=== PATIENT | male | born 1995 | race Caucasian/White ===

== ENCOUNTER 2019-03-23 17:07 | Emergency (ER) | payer OTHER ==
--- NOTE | 2019-03-23 17:31 | ED ---
Laceration/Wound HPI - HPI Summary HPI Summary: This patient gael 23 year old male presenting to [facility] with a chief complaint of left thumb webbing and index finger lacerations. He states he was holding a april jar and accidently tapped it on the counter causing it to shatter. He does not know if there is still glass in the wound. Medications reviewed, allergies noted. - History of Current Complaint Stated Complaint: LT HAND LAC PER PT Time Seen by Provider: 03/23/19 17:18 Hx Obtained From: Patient Onset/Duration: Lasting Minutes Pain Intensity: 2 Pain Scale Used: 0-10 Numeric - Allergy/Home Medications Allergies/Adverse Reactions: Allergies Allergy/AdvReac Type Severity Reaction Status Date / Time cefixime Allergy Hives Verified 03/23/19 17:14 PMH/Surg Hx/FS Hx/Imm Hx Endocrine/Hematology History: Denies: Hx Diabetes Cardiovascular History: Denies: Hx Coronary Artery Disease Infectious Disease History: No Infectious Disease History: Denies: Traveled Outside the [place] in Last 30 Days - Family History Known Family History: Negative: Cardiac Disease - Social History Occupation: Student Lives: Dormitory/Roommates Review of Systems Negative: Fever Positive: Other - Lacerations All Other Systems Reviewed And Are Negative: Yes Physical Exam - Summary Physical Exam Summary: Constitutional: Well-developed, Well-nourished, Alert, Cooperative Skin: Warm, Dry. 2 cm laceration on the webbing of the left thumb. Full ROM in the left thumb. 0.5 cm laceration at the hernandez aspect of the 2nd finger. HENT: Normocephalic; No Racoons eyes; No gallegos's sign; No abrasion; No contusion; No hemotympanum; No maxilla facial tenderness or instability; Dentition are smooth; No dental trauma; No trismus Eyes: EOM normal, PERRL Neck: Trachea is midline. No stridor; No JVD; No step off; No posterior cervical spine tenderness Cardio: Rhythm regular, rate normal Heart sounds normal; Intact distal pulses. Radial pulses are 2+ and symmetric. Pulmonary/Chest wall: Effort normal; Breath sounds normal; Equal chest rise; No flail segment; No rib tenderness; No sternal tenderness Abd: Soft, Appearance normal. No distension; No tenderness; No palpable pulsatile mass; No Cullens sign; No Kenny-Turners sign Musculoskeletal: Full ROM and no tenderness at hips, ankles, shoulders, elbows and knees; No joint swelling; No vertebral body tenderness; No paraspinal tenderness; No step off or deformity of the spine; Pelvis is stable to lateral compression and rock Neuro: Alert, Oriented x3, Strength 5/5 all extremities. : No blood at urethral meatus Psych: Mood and affect Normal Triage Information Reviewed: Yes Vital Signs On Initial Exam: Initial Vitals Temp Pulse Resp BP Pulse Ox 99.2 F 104 16 134/105 100 03/23/19 17:12 03/23/19 17:12 03/23/19 17:12 03/23/19 17:12 03/23/19 17:12 Vital Signs Reviewed: Yes Procedures - Sedation Patient Received Moderate/Deep Sedation with Procedure: No Diagnostics - Vital Signs Vital Signs Temp Pulse Resp BP Pulse Ox 03/23/19 17:12 99.2 F 104 16 134/105 100 - Laboratory Lab Statement: Any lab studies that have been ordered have been reviewed, and results considered in the medical decision making process. Laceration Repair Course/Dx - Course Course Of Treatment: Patient is here 2 small lacerations to his left hand. Patient had successful repair of his lacerations. Patient is up-to-date on tetanus. - Clinical Impression Provider Diagnoses: Laceration Discharge ED - Sign-Out/Discharge Documenting (check all that apply): Patient Departure - Discharge - Discharge Plan Condition: Stable Disposition: HOME Patient Education Materials: Laceration (ED) Referrals: No Primary Care Phys,NOPCP [Primary Care Provider] - Additional Instructions: Return with redness, puss, fever. Get your stitches removed in 10 days at [facility]. Keep your stitches dry, but you are allowed to wash them in the shower. - Billing Disposition and Condition Condition: STABLE Disposition: Home - Attestation Statements Document Initiated by Scribe: Yes Documenting Scribe: Gilberto Weaver Provider For Whom Linus is Documenting (Include Credential): Tip Vasquez MD Scribe Attestation: Gilberto Jefferson, scribed for Tip Vasquez MD on 03/23/19 at 1836. Scribe Documentation Reviewed: Yes Provider Attestation: The documentation as recorded by the Gilberto taylor accurately reflects the service I personally performed and the decisions made by me, Tip Vasquez MD Status of Scribe Document: Viewed
[2019-03-23 19:15] VITALS: BP 132/81
== END 2019-03-23 18:23 | disposition home or self-care (01) ==
LOC: ED 17:07
DX: S61.412A Laceration without foreign body of left hand, initial encounter (principal); S61.211A Laceration without foreign body of left index finger without damage to nail, initial encounter; W25.XXXA Contact with sharp glass, initial encounter; Y92.9 Unspecified place or not applicable; Z88.1 Allergy status to other antibiotic agents
CPT/HCPCS: 99282

== ENCOUNTER 2021-07-02 11:05 | Inpatient (IN) ==
[2021-07-02] MEDS ORDERED: ceFAZolin 2 GM PREMIX 2 GM/50 ML BAG ONE (11:26)
[2021-07-02] MEDS ORDERED: oxyCODONE/Acetamin 5/325 mg TAB PO PRN (12:06)
[2021-07-02] MEDS ORDERED: DiMENhydriNATE IV 50 mg/ml 1 ml VIAL IV PUSH PRN (12:06)
[2021-07-02] MEDS ORDERED: Ondansetron 4 mg VIAL 2 MG/ML 2 ml VIAL IV PRN ×2 (12:06→15:12)
[2021-07-02] MEDS ORDERED: Naloxone 0.4 mg VIAL 0.4 mg/ml 1 ml VIAL IV PRN (12:06)
[2021-07-02] MEDS ORDERED: Vancomycin 1,000 MG VIAL ONE ×2 (12:23→13:09)
[2021-07-02] MEDS ORDERED: Bupivacaine 0.5% W/EPI SDV 10 ML VIAL INJ ONE (12:24)
[2021-07-02] MEDS ORDERED: Midazolam 2 mg/2 ml VIAL 1 mg/ml 2 ml VIAL (2 mg) ONE (13:12)
[2021-07-02] MEDS ORDERED: fentaNYL 100 mcg/2 ml 50 MCG/ML VIAL ONE ×3 (13:12→15:35)
[2021-07-02] MEDS ORDERED: Propofol 10 MG/ML 20 ML BTL ONE (14:49)
[2021-07-02] MEDS ORDERED: diPHENhydraMINE 25 mg TAB PO PRN (15:12)
[2021-07-02] MEDS ORDERED: diPHENhydraMINE IV 50 MG/ML 1 ml VIAL (BENADRYL) IV PRN (15:12)
[2021-07-02] MEDS ORDERED: Magnesium Hydroxide LIQ 30 ML UDC PO PRN (15:12)
[2021-07-02] MEDS ORDERED: Lactulose 30 ml UDC PO PRN (15:12)
[2021-07-02] MEDS ORDERED: Ondansetron ODT 4 mg TAB 4 MG TAB PO PRN (15:12)
[2021-07-02] MEDS: fentaNYL 100 mcg/2 ml 50 MCG/ML VIAL IV PRN ×4 (15:19→15:43)
[2021-07-02] MEDS ORDERED: Albuterol HFA INHALER 8 gm MDI INH PRN (15:22)
[2021-07-02] MEDS ORDERED: oxyCODONE/Acetamin 5/325 mg TAB ONE (15:53)
[2021-07-02 17:02] LABS: ABS Lymphocytes 0.6 10^3/ul (1.0-4.8); ABS Neutrophils 6.7 10^3/ul (1.5-7.7); Eosinophil % 0.2 %; Hematocrit 33 % (42-52); Hemoglobin 10.8 g/dL (14.0-18.0); Lymphocyte % 6.6 %; Mean Corpuscular HGB Conc 33 g/dL (31-36); Mean Corpuscular Hemoglobin 27 pg (27-31); Mean Corpuscular Volume 82 fL (80-94); Mean Platelet Volume 6.7 fL (7.4-10.4); Platelet Count 455 10^3/uL (150-450); Red Blood Count 4.06 10^6 /uL (4.18-5.48); Red Cell Distribution Width 16 % (10-15); White Blood Count 8.3 10^3/uL (3.5-10.8)
[2021-07-02 18:16] LABS: Erythrocyte Sed Rate 106 mm/Hr (0-14)
[2021-07-02] MEDS: Vancomycin 1,000 MG in NS 0.9% 250 ml 250 ML IVPB SCH (18:44)
[2021-07-02] MEDS ORDERED: Mometasone/Formoter 200/5 MDI INH SCH (19:00)
[2021-07-02] MEDS: Mometasone/Formoter 200/5 MDI INH SCH (19:52)
[2021-07-02] MEDS: Magnesium Hydroxide LIQ 30 ML UDC PO SCH (21:32)
[2021-07-02 22:05] LABS: Body Fluid Appearance Cloudy; Body Fluid Color Yellow; Body Fluid Source Synovial Fluid
[2021-07-02 22:40] LABS: Body Fluid Band 1 %; Body Fluid Mono 1 %; Body Fluid Total Cells Counted 200; Body Fluid WBC 25013 /mcL
[2021-07-03] MEDS: Lactated Ringers 1000 ml BAG 1,000 ML IV SCH ×2 (05:03→17:16)
[2021-07-03 05:07] LABS: Potassium 4.4 mmol/L (3.5-5.0); eGFR CKD-EPI 125.5 (>60)
[2021-07-03] MEDS: Vancomycin 1,000 MG in NS 0.9% 250 ml 250 ML IVPB SCH ×2 (06:06→18:52)
[2021-07-03] MEDS: Vitamin THERAPEUTIC TAB PO SCH (09:07)
[2021-07-03] MEDS: Amphetamine MIXED SALT 10mgTAB PO SCH (09:09)
[2021-07-03] MEDS: Magnesium Hydroxide LIQ 30 ML UDC PO SCH ×2 (09:09→21:02)
[2021-07-03] MEDS: Mometasone/Formoter 200/5 MDI INH SCH ×2 (11:05→20:10)
[2021-07-03 16:20] LABS: ABS Lymphocytes 0.6 10^3/ul (1.0-4.8); ABS Monocytes 0.7 10^3/ul (0-0.8); ABS Neutrophils 3.9 10^3/ul (1.5-7.7); Eosinophil % 0.4 %; Hematocrit 32 % (42-52); Hemoglobin 10.7 g/dL (14.0-18.0); Lymphocyte % 11.2 %; Mean Corpuscular HGB Conc 33 g/dL (31-36); Mean Corpuscular Hemoglobin 27 pg (27-31); Mean Corpuscular Volume 82 fL (80-94); Mean Platelet Volume 6.7 fL (7.4-10.4); Platelet Count 425 10^3/uL (150-450); Red Blood Count 3.95 10^6 /uL (4.18-5.48); Red Cell Distribution Width 16 % (10-15); White Blood Count 5.2 10^3/uL (3.5-10.8)
[2021-07-03 17:35] LABS: Erythrocyte Sed Rate 108 mm/Hr (0-14)
[2021-07-03] MEDS ORDERED: Piperacillin/Tazobac ADVAN 3.375 GM in NS 0.9% 100 ml BAG 100 ML IV ONE (18:45)
[2021-07-03] MEDS ORDERED: Zosyn per Pharmacy NOTE FOLLOW UP SCH (19:00)
[2021-07-04] MEDS: ZOSYN 3.375 GM Q8H per EXTENDED INFUSION IV SCH ×2 (02:05→09:21)
[2021-07-04] MEDS: Vancomycin 1,000 MG in NS 0.9% 250 ml 250 ML IVPB SCH ×3 (06:28→18:16)
[2021-07-04] MEDS: Mometasone/Formoter 200/5 MDI INH SCH ×2 (08:22→20:02)
[2021-07-04] MEDS: Amphetamine MIXED SALT 10mgTAB PO SCH (08:31)
[2021-07-04] MEDS: Magnesium Hydroxide LIQ 30 ML UDC PO SCH ×2 (08:32→21:10)
[2021-07-04] MEDS: Vitamin THERAPEUTIC TAB PO SCH (09:00)
[2021-07-04] MEDS ORDERED: Vancomycin per Pharmacy 1 EA NOTE FOLLOW UP PRN (09:19)
[2021-07-04 11:53] LABS: ABS Eosinophils 0.1 10^3/ul (0-0.6); ABS Lymphocytes 0.8 10^3/ul (1.0-4.8); ABS Neutrophils 4.4 10^3/ul (1.5-7.7); Eosinophil % 0.8 %; Hematocrit 32 % (42-52); Hemoglobin 10.5 g/dL (14.0-18.0); Lymphocyte % 12.2 %; Mean Corpuscular HGB Conc 33 g/dL (31-36); Mean Corpuscular Hemoglobin 26 pg (27-31); Mean Corpuscular Volume 81 fL (80-94); Mean Platelet Volume 6.8 fL (7.4-10.4); Nucleated Red Blood Cells % 0.1; Platelet Count 393 10^3/uL (150-450); Red Blood Count 3.96 10^6 /uL (4.18-5.48); Red Cell Distribution Width 16 % (10-15); White Blood Count 6.2 10^3/uL (3.5-10.8)
[2021-07-04 13:18] LABS: Erythrocyte Sed Rate > 120 mm/Hr (0-14)
[2021-07-04] MEDS: ZOSYN 3.375 GM Q6H IV SCH ×2 (16:56→21:08)
[2021-07-05] MEDS: Vancomycin 1,000 MG in NS 0.9% 250 ml 250 ML IVPB SCH ×2 (00:55→08:31)
[2021-07-05] MEDS: ZOSYN 3.375 GM Q6H IV SCH (03:53)
[2021-07-05] MEDS ORDERED: Vancomycin Trough Check NOTE FOLLOW UP ONE ×2 (06:00→07:15)
[2021-07-05] MEDS: Mometasone/Formoter 200/5 MDI INH SCH ×2 (07:10→20:53)
[2021-07-05 08:08] LABS: Vancomycin Trough 9.7 mcg/mL; eGFR CKD-EPI 126.4 (>60)
[2021-07-05] MEDS: Vitamin THERAPEUTIC TAB PO SCH (08:34)
[2021-07-05] MEDS: Amphetamine MIXED SALT 10mgTAB PO SCH (08:35)
[2021-07-05] MEDS: Magnesium Hydroxide LIQ 30 ML UDC PO SCH ×2 (09:38→22:03)
[2021-07-05] MEDS ORDERED: Lidocaine 1% MPF 5 ML VIAL INJ ONE (10:41)
[2021-07-05] MEDS: Ampicillin ADVAN 2 GM in NS 0.9% 100 ml BAG 100 ML IVPB SCH ×4 (11:00→21:57)
[2021-07-06] MEDS: Ampicillin ADVAN 2 GM in NS 0.9% 100 ml BAG 100 ML IVPB SCH ×4 (02:35→13:33)
[2021-07-06] MEDS: Mometasone/Formoter 200/5 MDI INH SCH (07:19)
[2021-07-06] MEDS: Amphetamine MIXED SALT 10mgTAB PO SCH (08:25)
[2021-07-06] MEDS: Magnesium Hydroxide LIQ 30 ML UDC PO SCH (08:26)
[2021-07-06 10:50] VITALS: BP 143/80
== END 2021-07-06 14:30 | disposition home or self-care (01) | DRG 486 ==
LOC: OR 11:05 → SSU 11:05 → OBSVTOIN 17:09
PROVIDERS: ADMIT Orthopaedic Surgery Sports Medicine; ATTEND Orthopaedic Surgery Sports Medicine